=== PATIENT | male | born 1990 | race Caucasian/White ===

== ENCOUNTER 2016-12-22 21:13 | Emergency (ER) | payer MEDICAID ==
[~2016-12-22] VITALS: Ht 193 cm; Wt 136.1 kg
[~2016-12-22 21:13] MED LIST: ALPR2TAB2 PO; OXYC-133 PO; OXYC80TA28 PO; SOM350 PO; WELSR150 PO; ZOLP5TAB7 PO
--- NOTE | 2016-12-22 21:15 | NUR ---
Patient to ER bed H1 to gown for evaluation. Side rails up.
--- NOTE | 2016-12-22 21:17 | NUR ---
Pt brought by Felice HARRISON&Ox4, pt states he was in the street and called paramedics due to his mental health pt c/o depression and lower back pain, Hx of bipolar and schizophrenia, patient denies suicidal ideation, VSS, skin pink and warm, cooperative with staff.
[2016-12-22 21:19] VITALS: BP 112/74; PULSE 114; RESP 18; TEMP 98.5; O2SAT 98
--- NOTE | 2016-12-22 21:40 | NUR ---
ER MD Morataya at bedside evaluating the patient
--- NOTE | 2016-12-22 21:44 | NUR ---
Per MD Morataya patient stated "i want to end it, i will take bunch of pills and stay in front of a train" Suicidal precautions started
--- NOTE | 2016-12-22 21:44 | NUR ---
Patient moved to bed 5
--- NOTE | 2016-12-22 21:45 | NUR ---
Patient placed on suicide precautions. Patient placed in room within close proximity to nurses' station for closer observation and monitoring. All clothing removed, placed in hospital gown. Metal detector wand used to further screen patient of any potential hazardous belongings. All belongings inventoried, placed in bags and removed from room. Cabinets locked. BP and pulse oximeter cords, and gambling monitor leads removed.
--- NOTE | 2016-12-22 21:46 | NUR ---
Patient brought BLS from home. Initially patient stated that he is depressed and called 911 for severe lower back pain. When seen by ER MD Morataya, patient stated suicidal ideation with direct plan and means. Denies auditory or visual hallucinatons, C/O severe depression, loneliness and worthlessness. Avoids eye contact. AAOx4, unlabored breathing, no signs of acute distress.
--- NOTE | 2016-12-22 21:50 | NUR ---
Lethality and suicidal risk assessment forms completed and placed in chart
--- NOTE | 2016-12-22 22:15 | NUR ---
Artist Agent at bedside for blood draw. Patient identified x2
[2016-12-22 22:34] LABS: ANION GAP 6 (5-15); BASOPHILS # (AUTO) 0.1 K/uL (0.0-0.2); BASOPHILS % (AUTO) 1.7 % (0.0-2.0); CALCIUM 9.2 mg/dL (8.4-11.0); CHLORIDE 104 mmol/L (98-107); CREATININE 1.41 mg/dL (0.55-1.30); EOSINOPHILS % (AUTO) 0.2 % (0.0-4.0); GLUCOSE 122 mg/dL (70-99); HEMATOCRIT 39.8 % (36-54); HEMOGLOBIN 13.4 g/dL (14.0-18.0); LYMPHOCYTES # (AUTO) 1.4 K/uL (1.0-5.5); MEAN CORPUSCULAR HEMOGLOBIN 29 pg (27-31); MEAN CORPUSCULAR HGB CONC 34 % (32-36); MEAN CORPUSCULAR VOLUME 86 fL (79.0-98.0); MONOCYTES # (AUTO) 0.7 K/uL (0.0-1.0); MONOCYTES % (AUTO) 8.1 % (1.7-9.3); NEUTROPHILS # (AUTO) 6.3 K/uL (1.8-7.7); PLATELET COUNT (AUTO) 194 K/uL (130-430); POTASSIUM 4.2 mmol/L (3.5-5.1); RED BLOOD CELL COUNT(AUTO) 4.66 MIL/uL (4.2-6.2); RED CELL DISTRIBUTION WIDTH 13.2 % (9.0-15.0); SODIUM SERUM 137 mmol/L (136-145); UREA NITROGEN, BLOOD 20 mg/dL (8-21); WHITE BLOOD COUNT (AUTO) 8.5 K/uL (4.8-10.8)
[2016-12-22 22:38] LABS: ALANINE AMINOTRANSFERASE 34 U/L (12-78); ALBUMIN 3.6 g/dL (3.4-4.8); ASPARTATE AMINOTRANSFERASE 14 U/L (10-37); SALICYLATE 3 mg/dL (3-30); TOTAL BILIRUBIN 0.3 mg/dL (0.0-1.0); TOTAL PROTEIN, SERUM 6.9 g/dL (6.4-8.3)
[2016-12-22 22:47] LABS: GFR AFRICAN AMERICAN 79 mL/min (>90)
[2016-12-22 22:48] LABS: ACETAMINOPHEN < 1 ug/mL (1-30); ALCOHOL, BLOOD < 3 mg/dL (<10)
--- NOTE | 2016-12-22 23:16 | NUR ---
Patient resting. VS WNL No signs of acute distress.
[2016-12-22 23:23] LABS: BARBITURATE, URINE NEGATIVE (NEG <=200); BENZODIAZEPINE, URINE POSITIVE (NEG <=150); CANNABINOID, URINE POSITIVE (NEG <=50); COCAINE, URINE NEGATIVE (NEG <=150); METHAMPHETAMINES SCREEN,URINE NEGATIVE (NEG <=500); OPIATE, URINE NEGATIVE (NEG <=100); PHENCYCLIDINE SCREEN,URINE NEGATIVE (NEG <=25); UR TRICYCLIC ANTIDEPRESSANTS POSITIVE (NEG <=300); URINE AMPHETAMINE NEGATIVE (NEG <=500); URINE METHADONE NEGATIVE (NEG <=200); URINE OXYCODONE SCREEN NEGATIVE (NEG <=100); URINE PROPOXYPHENE SCREEN NEGATIVE (NEG <=300)
--- NOTE | 2016-12-22 23:40 | NUR ---
Spoke with PET Team and Faxed over info that they requested to [phone]
--- NOTE | 2016-12-23 00:06 | NUR ---
Security at bedside to want patient
--- NOTE | 2016-12-23 01:22 | NUR ---
Patient resting quietly. No acute distress noted. Vital signs within normal range.
[2016-12-23] MEDS ORDERED: traMADol HCL HCL 50 MG TABLET (ULTRAM) PO ONE (02:00)
--- NOTE | 2016-12-23 02:33 | NUR ---
PET Team update. ETA 0800
--- NOTE | 2016-12-23 03:17 | NUR ---
Patient asleep, no signs of acute distress.
--- NOTE | 2016-12-23 05:20 | NUR ---
pt observed to be sleeping. vss. no s/s distress. will continue to monitor.
--- NOTE | 2016-12-23 07:30 | NUR ---
Received report from AMBROSIO Naik. Pt sleeping in room, easily arousable and oriented. States he still feels deressed. No complaints of pain at this time. Pt states he goes [address] Will continue to monitor.
--- NOTE | 2016-12-23 10:48 | NUR ---
Pt sleeping in bed. Easily arousable. No s/s crdiac/resp distress noted. Will conitnue to monitor.
--- NOTE | 2016-12-23 11:30 | NUR ---
Pt on stable condition,follows commands, ambulatory to bathroom, denies pain or discomfort at this time
[2016-12-23] MEDS ORDERED: ALPRAZolam 0.25 MG TABLET PO ONE (13:30)
--- NOTE | 2016-12-23 13:30 | NUR ---
Pt c/o anxiety, cooperative with staff, aware.
--- NOTE | 2016-12-23 13:41 | NUR ---
Social Service Note: [employer] placed stacey to Aleida at [facility] ([phone]); Aleida states that they are currently full and waiting for discharges. [facility] alerted Aleida that [facility] had a possible pt once evaluated by psychiatrist and place on 9200. [facility] has faxed pt's information to Aleida for review for possible admission under the [facility] contract if a bed should open up and pt is placed on 3278.
[2016-12-23] MEDS ORDERED: HYDROcodone/ACETAMIN 5-325 MG TAB (NORCO/ VICODIN) PO ONE (16:00)
[2016-12-23 20:29] VITALS: BP 130/86; PULSE 80; RESP 16; TEMP 98.1; O2SAT 98
--- NOTE | 2016-12-23 20:29 | NUR ---
Patient to be transferred to [facility]. Is being transferred due to higher level of care. Receiving facility has accepting physician and available space. ER physician has signed transfer form. Patient or responsible green party has agreed to transfer and signed form. Patient belongings inventoried and will be sent with patient. Copy of nursing notes, lab reports, EKG, Physicians Orders and X-rays to be sent with patient. Report called to at receiving facility. Receiving physician is Dr Gasca . ambulance service has been called for transfer . ETA present time.
== END 2016-12-23 20:29 ==
LOC: SED 21:13
DX: R45.851 Suicidal ideations (principal); M47.896 Other spondylosis, lumbar region; Z88.8 Allergy status to other drugs, medicaments and biological substances; Z88.6 Allergy status to analgesic agent
CPT/HCPCS: 36415; 80053; 80307; 85025; 93005; 99285; G0480; G0481; G0482

== ENCOUNTER 2016-12-29 17:21 | Emergency (ER) | payer MEDICAID ==
[~2016-12-29] VITALS: Ht 193 cm; Wt 108.9 kg
[2016-12-29 17:23] VITALS: BP_SYST 125
== END 2016-12-29 17:34 ==
LOC: SED 17:21
DX: Z02.89 Encounter for other administrative examinations (principal); F10.129 Alcohol abuse with intoxication, unspecified; M79.671 Pain in right foot; M79.672 Pain in left foot; M79.652 Pain in left thigh; M79.651 Pain in right thigh; N17.9 Acute kidney failure, unspecified; M47.896 Other spondylosis, lumbar region; Z86.59 Personal history of other mental and behavioral disorders; Z88.8 Allergy status to other drugs, medicaments and biological substances; Z88.6 Allergy status to analgesic agent
CPT/HCPCS: 99283

== ENCOUNTER 2017-10-28 09:35 | Emergency (ER) | payer MEDICAID ==
[~2017-10-28] VITALS: Ht 195.6 cm; Wt 158.8 kg
[2017-10-28 09:36] VITALS: BP_SYST 137
[2017-10-28 09:53] VITALS: BP_SYST 137
== END 2017-10-28 09:53 ==
LOC: SED 09:35
DX: Z02.89 Encounter for other administrative examinations (principal); Z88.8 Allergy status to other drugs, medicaments and biological substances; Z88.6 Allergy status to analgesic agent; Z79.899 Other long term (current) drug therapy
CPT/HCPCS: 99283

== ENCOUNTER 2018-01-08 23:31 | Emergency (ER) | payer MEDICAID ==
[~2018-01-08] VITALS: Ht 193 cm; Wt 145.1 kg
[2018-01-08 23:31] VITALS: BP_SYST 128
[2018-01-08] MEDS ORDERED: LORazepam 2 MG/ML VIAL IVP ONE (23:45)
[2018-01-08] MEDS ORDERED: NACL 0.9% 1,000 ML IV ONE (23:45)
[2018-01-09] MEDS ORDERED: METOCLOPRAMIDE HCL 10 MG/2 ML VIAL IVP ONE
[2018-01-09] MEDS ORDERED: LORazepam 2 MG/ML VIAL (FOR ER USE) ONE (00:09)
[2018-01-09 00:10] LABS: BASOPHILS # (AUTO) 0.3 K/uL (0.0-0.2); BASOPHILS % (AUTO) 1.7 % (0.0-2.0); HEMATOCRIT 40.2 % (36-54); HEMOGLOBIN 13.2 g/dL (14.0-18.0); LYMPHOCYTES # (AUTO) 0.5 K/uL (1.0-5.5); LYMPHOCYTES % (AUTO) 3.5 % (20.5-51.5); MEAN CORPUSCULAR HEMOGLOBIN 27 pg (27-31); MEAN CORPUSCULAR HGB CONC 33 % (32-36); MEAN CORPUSCULAR VOLUME 82 fL (79.0-98.0); MONOCYTES # (AUTO) 0.7 K/uL (0.0-1.0); MONOCYTES % (AUTO) 4.6 % (1.7-9.3); NEUTROPHILS # (AUTO) 13.8 K/uL (1.8-7.7); NEUTROPHILS % (AUTO) 90.2 % (40.0-70.0); PLATELET COUNT (AUTO) 367 K/uL (130-430); RED BLOOD CELL COUNT(AUTO) 4.89 MIL/uL (4.2-6.2); RED CELL DISTRIBUTION WIDTH 13.4 % (9.0-15.0); WHITE BLOOD COUNT (AUTO) 15.3 K/uL (4.8-10.8)
[2018-01-09] MEDS ORDERED: PROCHLORPERAZINE EDISYLATE 10 MG/2 ML VIAL ONE (00:10)
[2018-01-09] MEDS ORDERED: PROCHLORPERAZINE EDISYLATE 10 MG/2 ML VIAL IVP ONE (00:15)
[2018-01-09 00:22] LABS: CALCIUM 9.4 mg/dL (8.4-11.0); CREATININE 1.11 mg/dL (0.55-1.30); POTASSIUM 4.2 mmol/L (3.5-5.1)
[2018-01-09 00:23] LABS: INR 1.1 (0.80-1.20); PROTHROMBIN TIME 10.8 SECS (9.5-12.5)
[2018-01-09 00:27] LABS: ALBUMIN 3.8 g/dL (3.4-4.8); TOTAL BILIRUBIN 0.6 mg/dL (0.0-1.0)
[2018-01-09] MEDS ORDERED: FOLIC ACID 1 MG, THIAMINE HCL 100 MG, MAGNESIUM SULFATE 1 GM, MVI 10 ML in NACL 0.9% 1,... IV ONE (00:45)
[2018-01-09 00:56] LABS: CKMB RELATIVE INDEX 0.9 (0.0-2.9)
[2018-01-09] MEDS ORDERED: MVI 10 ML VIAL IV ONE (01:02)
[2018-01-09] MEDS ORDERED: FOLIC ACID 5 MG/ML VIAL IV ONE (01:02)
[2018-01-09] MEDS ORDERED: MAGNESIUM SULFATE 1 GM/2 ML VIAL ONE (01:02)
[2018-01-09] MEDS ORDERED: FAMOTIDINE 20 MG TABLET PO ONE (01:15)
[2018-01-09] MEDS ORDERED: cefTRIAXone 2 GM VIAL ONE (01:18)
[2018-01-09 06:25] VITALS: BP_SYST 114
== END 2018-01-09 06:25 | disposition home or self-care (01) ==
LOC: SED 23:31
DX: F23 Brief psychotic disorder (principal); F10.129 Alcohol abuse with intoxication, unspecified; D72.829 Elevated white blood cell count, unspecified; F31.9 Bipolar disorder, unspecified; F41.9 Anxiety disorder, unspecified; N17.9 Acute kidney failure, unspecified; F17.210 Nicotine dependence, cigarettes, uncomplicated; Z88.8 Allergy status to other drugs, medicaments and biological substances; Z91.14 Patient's other noncompliance with medication regimen; Z72.821 Inadequate sleep hygiene
CPT/HCPCS: 36415; 71045; 80053; 82150; 82550; 82553; 83605; 83690; 84484; 85025; 85610; 85730; 87040; 93005; 96361; 96365; 96368; 96375; 99285; G0482; J0696; J0780; J2060 ×2; J3475; J3490; J7030 ×2

== ENCOUNTER 2018-01-14 23:29 | Emergency (ER) | payer MEDICAID ==
[~2018-01-14] VITALS: Ht 193 cm; Wt 127.0 kg
[2018-01-14 23:43] VITALS: BP_SYST 109
[2018-01-15 00:08] LABS: BASOPHILS # (AUTO) 0.1 K/uL (0.0-0.2); BASOPHILS % (AUTO) 1.1 % (0.0-2.0); EOSINOPHILS # (AUTO) 0.2 K/uL (0.0-0.4); HEMATOCRIT 39.4 % (36-54); HEMOGLOBIN 13.1 g/dL (14.0-18.0); LYMPHOCYTES # (AUTO) 2.5 K/uL (1.0-5.5); LYMPHOCYTES % (AUTO) 29.7 % (20.5-51.5); MEAN CORPUSCULAR HEMOGLOBIN 27 pg (27-31); MEAN CORPUSCULAR HGB CONC 33 % (32-36); MEAN CORPUSCULAR VOLUME 83 fL (79.0-98.0); MONOCYTES # (AUTO) 0.7 K/uL (0.0-1.0); MONOCYTES % (AUTO) 8.6 % (1.7-9.3); NEUTROPHILS # (AUTO) 5.1 K/uL (1.8-7.7); NEUTROPHILS % (AUTO) 58.6 % (40.0-70.0); PLATELET COUNT (AUTO) 330 K/uL (130-430); RED BLOOD CELL COUNT(AUTO) 4.77 MIL/uL (4.2-6.2); WHITE BLOOD COUNT (AUTO) 8.6 K/uL (4.8-10.8)
[2018-01-15] MEDS ORDERED: QUEtiapine FUMARATE 100 MG TABLET PO ONE (00:15)
[2018-01-15] MEDS ORDERED: LORazepam 1 MG TABLET PO ONE (00:15)
[2018-01-15 00:16] LABS: ANION GAP 12 (5-15); CHLORIDE 104 mmol/L (98-107); CREATININE 0.92 mg/dL (0.55-1.30); GLUCOSE 101 mg/dL (70-99); POTASSIUM 3.6 mmol/L (3.5-5.1); SODIUM SERUM 140 mmol/L (136-145); UREA NITROGEN, BLOOD 12 mg/dL (8-21)
[2018-01-15 00:22] LABS: ACETAMINOPHEN < 1 ug/mL (1-30); ALANINE AMINOTRANSFERASE 37 U/L (12-78); ALBUMIN 3.4 g/dL (3.4-4.8); ALCOHOL, BLOOD 11 mg/dL (<10); ASPARTATE AMINOTRANSFERASE 22 U/L (10-37); TOTAL BILIRUBIN 0.2 mg/dL (0.0-1.0)
[2018-01-15 00:23] LABS: GFR AFRICAN AMERICAN 129 mL/min (>90)
[2018-01-15] MEDS ORDERED: QUEtiapine FUMARATE 100 MG TABLET ONE (01:01)
[2018-01-15 05:36] VITALS: BP_SYST 112
== END 2018-01-15 07:16 | disposition home or self-care (01) ==
LOC: SED 23:29
DX: F32.9 Major depressive disorder, single episode, unspecified (principal); N17.9 Acute kidney failure, unspecified; F41.9 Anxiety disorder, unspecified; F20.9 Schizophrenia, unspecified; Z79.899 Other long term (current) drug therapy; F17.200 Nicotine dependence, unspecified, uncomplicated; Z88.8 Allergy status to other drugs, medicaments and biological substances; Z88.6 Allergy status to analgesic agent
CPT/HCPCS: 36415; 80053; 85025; 99285; G0480; G0481; G0482

== ENCOUNTER 2018-05-08 03:39 | Emergency (ER) | payer OTHER, MEDICAID ==
[~2018-05-08] VITALS: Ht 195.6 cm; Wt 149.7 kg
[~2018-05-08 03:39] MED LIST changes: +AMOX-423 PO
[2018-05-08 03:50] VITALS: BP_SYST 120
--- NOTE | 2018-05-08 04:05 | NUR ---
Patient to ER bed 6 to gown for evaluation. Side rails up. Report given to AMBROSIO GUAMAN.
--- NOTE | 2018-05-08 04:07 | NUR ---
Pt came into the ER in stable condition. Pt able to ambulate to bed 6 w/ a steady gait. Pt stated that he has a hx of Schizo-affect disorder and has been off of his meds for 1 week. Pt stated that he has not slept for 3-4 days and feels delusional. Pt is speaking coherently,but states that he feels confused when his speaking and thinks that he is not making any sense. Pt states that he is hearing voices but tries not to play into them. Pt denies SI and HI. -sob -chest pain. No acute distress noted at this time, will continue to monitor.
--- NOTE | 2018-05-08 05:00 | NUR ---
ER at bedside examining patient.
[2018-05-08 05:44] VITALS: BP_SYST 120
--- NOTE | 2018-05-08 05:44 | NUR ---
Patient given written and verbal discharge instructions and verbalizes understanding. ER MD DRISCOLL discussed with patient the results and treatment provided. Patient in stable condition. ID arm band removed. NO Rx given. Patient educated on pain management and to follow up with PMD. Pain Scale 0/10. Opportunity for questions provided and answered. Medication side effect fact sheet provided.
== END 2018-05-08 05:44 | disposition home or self-care (01) ==
LOC: SED 03:39
DX: Z91.14 Patient's other noncompliance with medication regimen (principal); R45.7 State of emotional shock and stress, unspecified; F31.9 Bipolar disorder, unspecified; F12.10 Cannabis abuse, uncomplicated; Z88.6 Allergy status to analgesic agent; Z88.8 Allergy status to other drugs, medicaments and biological substances; Z79.899 Other long term (current) drug therapy
CPT/HCPCS: 99281

== ENCOUNTER 2018-09-06 00:46 | Emergency (ER) | payer OTHER, MEDICAID ==
[~2018-09-06] VITALS: Ht 193 cm; Wt 104.3 kg
[2018-09-06 00:56] VITALS: BP_SYST 130
[2018-09-06] MEDS ORDERED: ONDANSETRON HCL 4 MG/2 ML VIAL IVP ONE (01:00)
[2018-09-06] MEDS ORDERED: NACL 0.9% 1,000 ML IV ONE (01:00)
[2018-09-06] MEDS ORDERED: FAMOTIDINE PF 20 MG/2 ML VIAL IVP ONE (01:00)
[2018-09-06] MEDS ORDERED: MAG HYDROX/AL HYDROX/SIMETH 30 ML, BELLADONNA ALKALOIDS/PHENOBARB 10 ML, LIDOCAINE VISC... PO ONE ×3 (01:00)
[2018-09-06] MEDS ORDERED: ACETAMINOPHEN 500 MG TABLET PO ONE (01:15)
[2018-09-06] MEDS ORDERED: MORPHINE 4 MG/ML INJ. SYRINGE IVP ONE (01:30)
[2018-09-06 03:42] VITALS: BP_SYST 135
== END 2018-09-06 03:42 | disposition home or self-care (01) ==
LOC: SED 00:46
DX: K21.9 Gastro-esophageal reflux disease without esophagitis (principal); R11.2 Nausea with vomiting, unspecified; F31.9 Bipolar disorder, unspecified; F41.9 Anxiety disorder, unspecified; Z88.6 Allergy status to analgesic agent; Z88.8 Allergy status to other drugs, medicaments and biological substances; Z79.899 Other long term (current) drug therapy
CPT/HCPCS: 96361; 96374; 96375; 99283; J2001; J2270; J2405; J3490; J7030

== ENCOUNTER 2018-11-16 03:43 | Emergency (ER) | payer OTHER, MEDICAID ==
[~2018-11-16] VITALS: Ht 193 cm; Wt 145.1 kg
[2018-11-16 03:45] VITALS: BP_SYST 125
[2018-11-16] MEDS ORDERED: QUEtiapine FUMARATE 100 MG TABLET PO ONE (05:00)
[2018-11-16] MEDS ORDERED: OLANZapine 10 MG TABLET PO ONE (05:00)
[2018-11-16] MEDS ORDERED: QUEtiapine FUMARATE 100 MG TABLET ONE (05:10)
[2018-11-16] MEDS ORDERED: OLANZapine 10 MG TABLET ONE (05:11)
[2018-11-16 05:17] VITALS: BP_SYST 125
== END 2018-11-16 05:17 | disposition home or self-care (01) ==
LOC: SED 03:43
DX: F20.9 Schizophrenia, unspecified (principal); F19.10 Other psychoactive substance abuse, uncomplicated; K21.9 Gastro-esophageal reflux disease without esophagitis; F41.9 Anxiety disorder, unspecified; F31.9 Bipolar disorder, unspecified; Z76.0 Encounter for issue of repeat prescription; Z88.6 Allergy status to analgesic agent; Z88.8 Allergy status to other drugs, medicaments and biological substances; Z79.899 Other long term (current) drug therapy
CPT/HCPCS: 99283

== ENCOUNTER 2019-03-25 19:41 | Emergency (ER) | payer OTHER, MEDICAID ==
[~2019-03-25] VITALS: Ht 195.6 cm; Wt 158.8 kg
[2019-03-25 19:42] VITALS: BP_SYST 117
[2019-03-25] MEDS ORDERED: NACL 0.9% 1,000 ML IV ONE (20:15)
[2019-03-25 20:29] LABS: EOSINOPHILS % (AUTO) 0.6 % (0.0-4.0); LYMPHOCYTES # (AUTO) 2.4 K/uL (1.0-5.5); MONOCYTES # (AUTO) 0.8 K/uL (0.0-1.0)
[2019-03-25 20:33] LABS: BASOPHILS % (AUTO) 0.5 % (0.0-2.0); EOSINOPHILS # (AUTO) 0.1 K/uL (0.0-0.4); HEMATOCRIT 45.6 % (36-54); HEMOGLOBIN 14.8 g/dL (14.0-18.0); LYMPHOCYTES % (AUTO) 28.7 % (20.5-51.5); MEAN CORPUSCULAR HEMOGLOBIN 27 pg (27-31); MEAN CORPUSCULAR HGB CONC 33 % (32-36); MEAN CORPUSCULAR VOLUME 84 fL (79.0-98.0); MONOCYTES % (AUTO) 10.1 % (1.7-9.3); NEUTROPHILS % (AUTO) 60.1 % (40.0-70.0); PLATELET COUNT (AUTO) 276 K/uL (130-430); RED BLOOD CELL COUNT(AUTO) 5.41 MIL/uL (4.2-6.2); RED CELL DISTRIBUTION WIDTH 14.2 % (9.0-15.0); WHITE BLOOD COUNT (AUTO) 8.3 K/uL (4.8-10.8)
[2019-03-25 20:34] LABS: ANION GAP 13 (5-15); CALCIUM 9.5 mg/dL (8.4-11.0); CHLORIDE 104 mmol/L (98-107); GFR AFRICAN AMERICAN 62 mL/min (>90); GLUCOSE 157 mg/dL (70-99); POTASSIUM 4.5 mmol/L (3.5-5.1); SODIUM SERUM 142 mmol/L (136-145); UREA NITROGEN, BLOOD 18 mg/dL (8-21)
[2019-03-25 20:40] LABS: ACETAMINOPHEN < 1 ug/mL (1-30); ALANINE AMINOTRANSFERASE 53 U/L (12-78); ALBUMIN 4.1 g/dL (3.4-4.8); ALCOHOL, BLOOD 116 mg/dL (<10); ASPARTATE AMINOTRANSFERASE 27 U/L (10-37); TOTAL BILIRUBIN 0.5 mg/dL (0.0-1.0)
[2019-03-25 21:06] LABS: BILIRUBIN,URINE NEGATIVE (NEGATIVE); BLOOD, URINE NEGATIVE (NEGATIVE); CLARITY/URINE CLEAR (CLEAR); COLOR,URINE YELLOW (YELLOW); GLUCOSE,URINE NEGATIVE (NEGATIVE); KETONES,URINE NEGATIVE (NEGATIVE); LEUKOCYTE ESTERASE ,URINE NEGATIVE (NEGATIVE); NITRITE, URINE NEGATIVE (NEGATIVE); PH,URINE 5.5 (5.0-8.0); PROTEIN URINE TRACE (NEGATIVE); UROBILINOGEN,URINE 0.2 (0.2-1.0)
[2019-03-25 21:10] LABS: BACTERIA,URINE RARE /HPF (None Seen); RBC,URINE 0-3 /HPF (0-3); WBC,URINE 0-3 /HPF (0-3)
[2019-03-25 21:16] LABS: BARBITURATE, URINE NEGATIVE (NEG <=200); BENZODIAZEPINE, URINE POSITIVE (NEG <=150); CANNABINOID, URINE POSITIVE (NEG <=50); COCAINE, URINE NEGATIVE (NEG <=150); METHAMPHETAMINES SCREEN,URINE POSITIVE (NEG <=500); OPIATE, URINE POSITIVE (NEG <=100); PHENCYCLIDINE SCREEN,URINE NEGATIVE (NEG <=25); UR TRICYCLIC ANTIDEPRESSANTS NEGATIVE (NEG <=300); URINE AMPHETAMINE NEGATIVE (NEG <=500); URINE METHADONE NEGATIVE (NEG <=200); URINE OXYCODONE SCREEN NEGATIVE (NEG <=100); URINE PROPOXYPHENE SCREEN NEGATIVE (NEG <=300)
[2019-03-25 23:40] VITALS: BP_SYST 122
== END 2019-03-25 23:40 | disposition home or self-care (01) ==
LOC: SED 19:41
DX: R41.82 Altered mental status, unspecified (principal); F10.129 Alcohol abuse with intoxication, unspecified; F11.90 Opioid use, unspecified, uncomplicated; K21.9 Gastro-esophageal reflux disease without esophagitis; F41.9 Anxiety disorder, unspecified; F32.9 Major depressive disorder, single episode, unspecified; Z88.6 Allergy status to analgesic agent; Z88.8 Allergy status to other drugs, medicaments and biological substances; Z79.899 Other long term (current) drug therapy
CPT/HCPCS: 36415; 36600; 70450; 80053; 80307; 81000; 82803; 85025; 93005; 96360; 99284; G0480; G0481; G0482; J7030

== ENCOUNTER 2019-03-28 21:34 | Emergency (ER) | payer OTHER, MEDICAID ==
[~2019-03-28] VITALS: Ht 177.8 cm; Wt 127.0 kg
[2019-03-28 21:35] VITALS: BP_SYST 130
[2019-03-28 22:14] LABS: CALCIUM 9.5 mg/dL (8.4-11.0); CREATININE 1.3 mg/dL (0.55-1.30); POTASSIUM 3.5 mmol/L (3.5-5.1)
[2019-03-28 22:15] LABS: BASOPHILS % (AUTO) 0.3 % (0.0-2.0); EOSINOPHILS % (AUTO) 0.2 % (0.0-4.0); HEMATOCRIT 39.1 % (36-54); HEMOGLOBIN 12.9 g/dL (14.0-18.0); LYMPHOCYTES # (AUTO) 1.1 K/uL (1.0-5.5); LYMPHOCYTES % (AUTO) 9.8 % (20.5-51.5); MEAN CORPUSCULAR HEMOGLOBIN 28 pg (27-31); MEAN CORPUSCULAR HGB CONC 33 % (32-36); MEAN CORPUSCULAR VOLUME 84 fL (79.0-98.0); MONOCYTES # (AUTO) 1.2 K/uL (0.0-1.0); MONOCYTES % (AUTO) 10.2 % (1.7-9.3); NEUTROPHILS # (AUTO) 9.3 K/uL (1.8-7.7); NEUTROPHILS % (AUTO) 79.5 % (40.0-70.0); PLATELET COUNT (AUTO) 224 K/uL (130-430); RED BLOOD CELL COUNT(AUTO) 4.67 MIL/uL (4.2-6.2); RED CELL DISTRIBUTION WIDTH 13.7 % (9.0-15.0); WHITE BLOOD COUNT (AUTO) 11.7 K/uL (4.8-10.8)
[2019-03-28 22:18] LABS: ALBUMIN 3.9 g/dL (3.4-4.8); TOTAL BILIRUBIN 1.4 mg/dL (0.0-1.0)
[2019-03-28 23:00] VITALS: BP_SYST 130
== END 2019-03-28 23:00 | disposition home or self-care (01) ==
LOC: SED 21:34
DX: F20.0 Paranoid schizophrenia (principal); K21.9 Gastro-esophageal reflux disease without esophagitis; F32.9 Major depressive disorder, single episode, unspecified; F41.9 Anxiety disorder, unspecified; Z88.6 Allergy status to analgesic agent; Z88.8 Allergy status to other drugs, medicaments and biological substances; Z79.899 Other long term (current) drug therapy
CPT/HCPCS: 36415; 80053; 85025; 99283

== ENCOUNTER 2019-06-08 17:24 | Emergency (ER) | payer OTHER, MEDICAID ==
[~2019-06-08] VITALS: Ht 195.6 cm; Wt 163.3 kg
[2019-06-08 17:30] VITALS: BP_SYST 132
[2019-06-08] MEDS ORDERED: ACTIVATED CHARCOAL 50 GM ORAL.SUSP PO ONE (17:45)
[2019-06-08 17:49] LABS: BASOPHILS # (AUTO) 0.1 K/uL (0.0-0.2); BASOPHILS % (AUTO) 0.7 % (0.0-2.0); EOSINOPHILS # (AUTO) 0.1 K/uL (0.0-0.4); EOSINOPHILS % (AUTO) 0.7 % (0.0-4.0); HEMATOCRIT 41.8 % (36-54); HEMOGLOBIN 13.4 g/dL (14.0-18.0); LYMPHOCYTES # (AUTO) 2.4 K/uL (1.0-5.5); LYMPHOCYTES % (AUTO) 30.7 % (20.5-51.5); MEAN CORPUSCULAR HEMOGLOBIN 27 pg (27-31); MEAN CORPUSCULAR HGB CONC 32 % (32-36); MEAN CORPUSCULAR VOLUME 84 fL (79.0-98.0); MONOCYTES # (AUTO) 0.8 K/uL (0.0-1.0); MONOCYTES % (AUTO) 10.6 % (1.7-9.3); NEUTROPHILS # (AUTO) 4.5 K/uL (1.8-7.7); NEUTROPHILS % (AUTO) 57.3 % (40.0-70.0); PLATELET COUNT (AUTO) 237 K/uL (130-430); RED BLOOD CELL COUNT(AUTO) 4.96 MIL/uL (4.2-6.2); RED CELL DISTRIBUTION WIDTH 13.8 % (9.0-15.0); WHITE BLOOD COUNT (AUTO) 7.8 K/uL (4.8-10.8)
[2019-06-08 17:59] LABS: ANION GAP 13 (5-15); CALCIUM 8.9 mg/dL (8.4-11.0); CHLORIDE 110 mmol/L (98-107); GLUCOSE 123 mg/dL (70-99); SODIUM SERUM 146 mmol/L (136-145); UREA NITROGEN, BLOOD 14 mg/dL (8-21)
[2019-06-08 18:03] LABS: GFR AFRICAN AMERICAN 93 mL/min (>90)
[2019-06-08 18:05] LABS: ALANINE AMINOTRANSFERASE 38 U/L (12-78); ALBUMIN 3.7 g/dL (3.4-4.8); ALCOHOL, BLOOD 58 mg/dL (<10); ASPARTATE AMINOTRANSFERASE 23 U/L (10-37); TOTAL BILIRUBIN 0.2 mg/dL (0.0-1.0)
[2019-06-08 18:07] LABS: ACETAMINOPHEN < 1 ug/mL (1-30)
[2019-06-08 21:15] LABS: BARBITURATE, URINE NEGATIVE (NEG <=200); BENZODIAZEPINE, URINE POSITIVE (NEG <=150); CANNABINOID, URINE POSITIVE (NEG <=50); COCAINE, URINE POSITIVE (NEG <=150); METHAMPHETAMINES SCREEN,URINE NEGATIVE (NEG <=500); OPIATE, URINE NEGATIVE (NEG <=100); PHENCYCLIDINE SCREEN,URINE NEGATIVE (NEG <=25); UR TRICYCLIC ANTIDEPRESSANTS NEGATIVE (NEG <=300); URINE AMPHETAMINE NEGATIVE (NEG <=500); URINE METHADONE NEGATIVE (NEG <=200); URINE OXYCODONE SCREEN NEGATIVE (NEG <=100); URINE PROPOXYPHENE SCREEN NEGATIVE (NEG <=300)
[2019-06-09 15:40] VITALS: BP_SYST 139
== END 2019-06-09 15:40 ==
LOC: SED 17:24
DX: T43.591A Poisoning by other antipsychotics and neuroleptics, accidental (unintentional), initial encounter (principal); F20.9 Schizophrenia, unspecified; F41.9 Anxiety disorder, unspecified; F31.9 Bipolar disorder, unspecified; Z88.8 Allergy status to other drugs, medicaments and biological substances; Z79.899 Other long term (current) drug therapy; Z88.5 Allergy status to narcotic agent; Y92.89 Other specified places as the place of occurrence of the external cause
CPT/HCPCS: 36415; 80053; 80307; 85025; 93005; 99285; G0480; G0481; G0482; 99284

== ENCOUNTER 2020-06-22 21:35 | Emergency (ER) | payer OTHER, MEDICAID ==
[~2020-06-22] VITALS: Ht 195.6 cm; Wt 145.1 kg
[2020-06-22 21:45] VITALS: BP_SYST 128
[2020-06-22 23:09] VITALS: BP_SYST 127
== END 2020-06-22 23:09 | disposition home or self-care (01) ==
LOC: SED 21:35
DX: M79.676 Pain in unspecified toe(s) (principal); K21.9 Gastro-esophageal reflux disease without esophagitis; N28.9 Disorder of kidney and ureter, unspecified; F41.9 Anxiety disorder, unspecified; I10 Essential (primary) hypertension; F17.200 Nicotine dependence, unspecified, uncomplicated; Z79.899 Other long term (current) drug therapy; Z88.6 Allergy status to analgesic agent
CPT/HCPCS: 99281

== ENCOUNTER 2020-06-23 10:41 | Emergency (ER) | payer OTHER, MEDICAID ==
[~2020-06-23] VITALS: Ht 188 cm; Wt 136.1 kg
[2020-06-23 10:58] VITALS: BP_SYST 131
[2020-06-23 11:01] VITALS: BP_SYST 131
== END 2020-06-23 11:04 | disposition home or self-care (01) ==
LOC: SED 10:41
DX: F41.9 Anxiety disorder, unspecified (principal); K21.9 Gastro-esophageal reflux disease without esophagitis; N28.9 Disorder of kidney and ureter, unspecified; Z79.899 Other long term (current) drug therapy; Z88.6 Allergy status to analgesic agent
CPT/HCPCS: 99281